=== PATIENT | female | born 1995 | race Caucasian/White ===

== ENCOUNTER → 2016-10-04 | Outpatient (CLI) | payer OTHER ==
--- NOTE | 2016-10-05 03:43 | REP ---
Clinical: Anatomical evaluation. Comparison: None . Findings: Examination demonstrates a single live intrauterine in breech presentation. motion is identified by technologist. Placenta is noted anteriorly and grade zero without evidence for placenta previa or abruption. Amniotic fluid volume is normal. Cervix measures 4.5 cm in length and appears closed. No evidence for nuchal cord. Gestational age by current measurements 20 weeks 6 day with GLENDA based 02/15/2017 . FHR equals 133 beats per minute. BPD 4.7 cm 20 weeks 1 day HC 18.2 cm 20 weeks 4 days AC 17.4 cm 22 weeks 2 days FL 3.6 cm 21 weeks 2 days HL 3.5 cm 21 weeks 6 days HC/AC ratio 1.05 Estimated weight 440 grams ( 76th percentile). Anatomical assessment demonstrates normal structures including cranium, choroid plexus, cavum, cerebellum/posterior fossa, lungs, four-chamber heart/ventricular outflow tracts, diaphragm, stomach, cord insertion/three-vessel cord, kidneys/bladder, spine, and extremities. Impression: Single live intrauterine in breech presentation. Limited evaluation of the facial features. Anatomical assessment is otherwise complete and within normal limits. Signed by Delmer Orta MD 10/05/2016 03:34 A
== END ==
LOC: M SMT 13:34
PROVIDERS: ATTEND Obstetrics & Gynecology
DX: Z34.82 Encounter for supervision of other normal pregnancy, second trimester (principal); O32.1XX1 Maternal care for breech presentation, fetus 1

== ENCOUNTER → 2016-11-19 | Outpatient (CLI) | payer OTHER ==
[2016-11-19 13:23] LABS: MEAN CORPUSCULAR HGB CONC 34.4 g/dl (32.0-36.5); MEAN CORPUSCULAR VOLUME 93.2 fl (80.0-96.0); RED CELL DISTRIBUTION WIDTH 13.2 % (11.5-14.5); WHITE BLOOD COUNT 12.3 K/mm3 (4.0-10.0)
== END ==
LOC: M SMT 09:34
PROVIDERS: ATTEND Obstetrics & Gynecology
DX: Z34.82 Encounter for supervision of other normal pregnancy, second trimester (principal)

== ENCOUNTER → 2017-01-26 | Outpatient (REF) | payer OTHER ==
[~2017-01-26] MED LIST: PRENTAB9 PO
== END ==
LOC: M LAB REF 17:01
PROVIDERS: ATTEND Obstetrics & Gynecology
DX: Z34.83 Encounter for supervision of other normal pregnancy, third trimester (principal)

== ENCOUNTER 2017-01-29 16:15 | Outpatient (CLI) | payer OTHER ==
[~2017-01-29] VITALS: Ht 170.2 cm; Wt 104.0 kg
[2017-01-29] MEDS ORDERED: PRENTAB9 PO (16:32)
[2017-01-29 16:33] VITALS: BP 127/66
[2017-01-29 17:08] VITALS: BP 116/59
== END 2017-01-29 17:32 | disposition home or self-care (01) ==
LOC: M LDO 16:15
PROVIDERS: ATTEND Obstetrics & Gynecology
DX: O26.893 Other specified pregnancy related conditions, third trimester (principal); Z3A.37 37 weeks gestation of pregnancy; R03.0 Elevated blood-pressure reading, without diagnosis of hypertension; R21 Rash and other nonspecific skin eruption; Z88.0 Allergy status to penicillin

== ENCOUNTER → 2017-02-08 | Outpatient (CLI) | payer OTHER ==
[~2017-02-08] MED LIST changes: +IBUP800T23 PO
[2017-02-08 13:33] LABS: MEAN CORPUSCULAR HEMOGLOBIN 30.6 pg (27.0-33.0); MEAN CORPUSCULAR HGB CONC 33.8 g/dl (32.0-36.5); MEAN CORPUSCULAR VOLUME 90.5 fl (80.0-96.0); RED CELL DISTRIBUTION WIDTH 13.8 % (11.5-14.5); WHITE BLOOD COUNT 11.2 K/mm3 (4.0-10.0)
[2017-02-08 13:48] LABS: ALT/SGPT 14 U/L (12-78); AST/SGOT 16 U/L (15-37); BILIRUBIN,TOTAL 0.3 MG/DL (0.2-1.0); GLOMERULAR FILTRATION RATE > 60.0 (>60); URIC ACID 4.7 MG/DL (2.6-6.0)
== END ==
LOC: M SMT 11:43
PROVIDERS: ATTEND Obstetrics & Gynecology
DX: O16.3 Unspecified maternal hypertension, third trimester (principal)

== ENCOUNTER 2017-02-11 07:07 | Inpatient (IN) | payer OTHER ==
[~2017-02-11] VITALS: Ht 170.2 cm; Wt 105.0 kg
[2017-02-11] VITALS (7 sets, daily range): BP systolic 125–159; BP diastolic 64–81
[~2017-02-11 07:07] MED LIST changes: -IBUP800T23 PO
[2017-02-11] MEDS ORDERED: LR 1,000 ML IV SCH (07:45)
[2017-02-11] MEDS ORDERED: LR 1,000 ML IV ONE (07:45)
[2017-02-11] MEDS ORDERED: BICITRA 30ML SOLN UDC PO ONE (07:45)
[2017-02-11] MEDS ORDERED: NALBUPHINE HCL 10 MG/ML AMP (J2300) IV PRN (08:00)
[2017-02-11] MEDS ORDERED: NALOXONE INJ 0.4 MG/1 ML VIAL (J2310) IV PRN ×2 (08:00)
[2017-02-11] MEDS ORDERED: METOCLOPRAMIDE INJ 10MG/2ML VIAL (J2765) IV PRN (08:00)
[2017-02-11] MEDS ORDERED: ONDANSETRON 4MG/2ML VIAL (J2405) IV PRN ×2 (08:00→12:00)
[2017-02-11 08:06] LABS: MEAN CORPUSCULAR HEMOGLOBIN 30.7 pg (27.0-33.0); MEAN CORPUSCULAR HGB CONC 34.1 g/dl (32.0-36.5); RED CELL DISTRIBUTION WIDTH 13.8 % (11.5-14.5); WHITE BLOOD COUNT 10.2 K/mm3 (4.0-10.0)
[2017-02-11] MEDS: PRENATAL VITAMIN TAB PO SCH (09:00)
[2017-02-11 09:57] LABS: HBSAG L&D NEGATIVE (NEGATIVE)
[2017-02-11] MEDS ORDERED: ONDANSETRON 4MG/2ML VIAL (J2405) As Ordered ONE (11:09)
[2017-02-11] MEDS ORDERED: ePHEDrine SULFATE 25 MG/5 ML(5MG/ML) SYRINGE As Ordered ONE (11:09)
[2017-02-11] MEDS ORDERED: OXYTOCIN INJ 10 UNITS/ML VIAL (J2590) As Ordered ONE (11:09)
[2017-02-11] MEDS ORDERED: PHENYLephrine HCL 500 MCG/5 ML (100MCG/ML) SYRINGE (J2370) As Ordered ONE (11:09)
[2017-02-11] MEDS ORDERED: KETOROLAC 60 MG/2 ML VIAL (J1885) As Ordered ONE (11:09)
[2017-02-11] MEDS ORDERED: MORPHINE PRES-FREE INJ 10 MG/10 ML VIAL (J2274) As Ordered ONE (11:09)
[2017-02-11] MEDS: LR 1,000 ML IV SCH ×2 (11:54→19:54)
[2017-02-11] MEDS ORDERED: MEASLES,MUMPS,RUBELLA VACCINE INJ (MMR-II) (90707) SC SCH (12:00)
[2017-02-11] MEDS ORDERED: RHOGAM 300 MCG (1500 IU) INJ (J2790) IM SCH (12:00)
[2017-02-11] MEDS ORDERED: OXYTOCIN DRIP 30 UNITS in APPROPRIATE DILUENT 1 EA IV ONE (12:00)
[2017-02-11] MEDS ORDERED: DOCUSATE SODIUM 100 MG CAP PO PRN (12:00)
[2017-02-11] MEDS ORDERED: PERCOCET 5MG/325MG TAB PO PRN ×2 (12:00)
[2017-02-11] MEDS: KETOROLAC 30 MG/ML VIAL (J1885) IV SCH ×2 (17:04→23:17)
[2017-02-12] VITALS (7 sets, daily range): BP systolic 120–180; BP diastolic 61–80
[2017-02-12] MEDS: LR 1,000 ML IV SCH (03:54)
[2017-02-12] MEDS: KETOROLAC 30 MG/ML VIAL (J1885) IV SCH (05:41)
[2017-02-12 06:31] LABS: MEAN CORPUSCULAR HEMOGLOBIN 30.9 pg (27.0-33.0); MEAN CORPUSCULAR HGB CONC 34.5 g/dl (32.0-36.5); MEAN CORPUSCULAR VOLUME 89.5 fl (80.0-96.0)
[2017-02-12] MEDS: PRENATAL VITAMIN TAB PO SCH (08:14)
[2017-02-12] MEDS: IBUPROFEN 800 MG TAB PO SCH ×2 (13:00→20:31)
[2017-02-13] MEDS: IBUPROFEN 800 MG TAB PO SCH (05:42)
[2017-02-13 06:08] VITALS: BP 135/77
[2017-02-13] MEDS: PRENATAL VITAMIN TAB PO SCH (08:23)
[2017-02-13] MEDS ORDERED: IBUP800T23 PO (10:59)
--- NOTE | 2017-02-13 19:46 | DSES ---
DATE OF ADMISSION: 02/11/2017 DATE OF DISCHARGE: 02/13/2017 HISTORY: A 21-year-old one at 39 and 0/7 weeks gestation presents for section due to breech presentation. The patient denies contractions. HOSPITAL COURSE: The patient was admitted on 02/11/2017. She underwent a primary low-tranverse section with a 7 pound 13 ounce female . There were no complications. Her postoperative course was unremarkable. She had adequate return of bladder and bowel function. She was deemed stable for discharge on postoperative day two. ADMISSION DIAGNOSIS: 39 weeks, breech presentation. DISCHARGE DIAGNOSIS: Delivered. PROCEDURE: Primary low-transverse section. DISPOSITION: The patient will followup with Dr. Kimbrough in two weeks for an incision check. Instructions are reviewed.
== END 2017-02-13 12:10 | disposition home or self-care (01) | DRG 540 ==
LOC: M LDI 07:07 → M OBS 13:52
PROVIDERS: ADMIT Obstetrics & Gynecology; ATTEND Obstetrics & Gynecology
PROC: 10D00Z1 Extraction of Products of Conception, Low, Open Approach (ICD-10-PCS; principal; 2017-02-11 09:30)
DX: O32.1XX0 Maternal care for breech presentation, not applicable or unspecified (principal); Z37.0 Single live birth; Z3A.39 39 weeks gestation of pregnancy

== ENCOUNTER → 2018-04-03 | Outpatient (REF) | payer OTHER | LOC: M LAB REF 17:56 | DX: Z12.4 Encounter for screening for malignant neoplasm of cervix (principal) | CPT/HCPCS: 88142 ==

== ENCOUNTER → 2020-11-24 | Outpatient (REF) | payer OTHER ==
[~2020-11-24] MED LIST changes: +IBUP1TAB7 PO
[2020-11-24 18:54] LABS: HEMATOCRIT 41.3 % (36.0-47.0); HEMOGLOBIN 13.7 g/dl (12.0-15.5); MEAN CORPUSCULAR HGB CONC 33.2 g/dl (32.0-36.5); MEAN CORPUSCULAR VOLUME 90.4 fl (80.0-96.0); PLATELET COUNT, AUTOMATED 267 10^3/uL (150-450); RED BLOOD COUNT 4.57 10^6/uL (4.00-5.40); WHITE BLOOD COUNT 13.2 10^3/uL (4.0-10.0)
[2020-11-24 19:57] LABS: HEPATITIS C VIRUS ABY INDEX < 0.0 INDEX (<0.8); HIV 1&2 SCREEN CENTAUR NEGATIVE (NEGATIVE)
[2020-11-24 20:14] LABS: CHLAMYDIA DNA AMPLIFICATION NEGATIVE (NEGATIVE); GC DNA AMPLIFICATION NEGATIVE (NEGATIVE)
== END ==
LOC: M PLALAB 14:36
PROVIDERS: ATTEND Specialist
DX: Z36.89 Encounter for other specified antenatal screening (principal); Z34.81 Encounter for supervision of other normal pregnancy, first trimester

== ENCOUNTER → 2021-01-19 | Outpatient (REF) | payer OTHER | LOC: M SFHCWAGY 16:58 | PROVIDERS: ATTEND Advanced Practice Midwife | DX: Z34.92 Encounter for supervision of normal pregnancy, unspecified, second trimester (principal); Z36.89 Encounter for other specified antenatal screening ==

== ENCOUNTER → 2021-01-29 | Outpatient (CLI) | payer OTHER ==
--- NOTE | 2021-01-29 15:22 | REP ---
INDICATION: ANATOMY COMPARISON: None. TECHNIQUE: Transabdominal obstetrical ultrasound with color Doppler evaluation. FINDINGS: Examination demonstrates a single live intrauterine in transverse (head to maternal left) presentation. motion is identified by technologist. Placenta is noted posteriorly, grade 1 and low lying approximately 7 mm from the closed internal os. Amniotic fluid volume is normal. Cervix measures 3.9 cm in length and appears closed.. Gestational age by LMP 18 weeks 2 days with GLENDA 06/30/2021. Gestational age by current measurements 18 weeks 5 days with GLENDA 06/27/2021. FHR equals 130 beats per minute. Estimated weight 238 grams (52ndpercentile). Anatomical assessment demonstrates normal structures including cranium, choroid plexus, cavum, cerebellum/posterior fossa, facial features, lungs, diaphragm, stomach, cord insertion/three-vessel cord, bladder, spine, and extremities. Incomplete evaluation of the heart/ventricular outflow tracts due to positioning. Mild symmetric bilateral renal pelviectasis upper limits of normal range. IMPRESSION: 1. Single live intrauterine in transverse lie demonstrating appropriate estimated weight. 2. Posterior low-lying placenta 7 mm from the closed internal os. 3. Anatomical limitations as noted above may warrant re-evaluation and follow-up. <Electronically signed by Delmer Orta > 01/29/21 [id number]
== END ==
LOC: M WHC 12:56
PROVIDERS: ATTEND Advanced Practice Midwife
DX: O44.42 Low lying placenta NOS or without hemorrhage, second trimester (principal); Z36.89 Encounter for other specified antenatal screening; Z3A.18 18 weeks gestation of pregnancy; O32.2XX0 Maternal care for transverse and oblique lie, not applicable or unspecified

== ENCOUNTER → 2021-03-03 | Outpatient (CLI) | payer OTHER ==
--- NOTE | 2021-03-03 09:44 | REP ---
INDICATION: F/U ANATOMY,EVALUATE PLACENTAL LOCATION COMPARISON: 01/29/2021 TECHNIQUE: Transabdominal obstetrical ultrasound with color Doppler evaluation. FINDINGS: Examination demonstrates a single live intrauterine in cephalic presentation. motion is identified by technologist. Placenta is noted posterior, low lying (approximately 18 mm from the closed internal os) and grade 1 without evidence for placenta previa or abruption. Amniotic fluid volume is normal. Cervix measures 3.5 cm in length and appears closed. No evidence for nuchal cord. Selected gestational age: 23 weeks 0 days with GLENDA 06/30/2021. Gestational age by current measurements 24 weeks 0 days with GLENDA 06/23/2021. FHR equals 140 beats per minute. Estimated weight 647 grams (86thpercentile). Anatomical assessment demonstrates normal structures including cranium, choroid plexus, cavum, cerebellum/posterior fossa, facial features, lungs, cardiac ventricular outflow tracts, diaphragm, stomach, cord insertion/three-vessel cord, bladder, spine, and extremities. Four-chamber heart views are relatively normal although small echogenic focus in the left cardiac ventricle is noted and likely represents prominent chordae tendineae. Bilateral renal pelviectasis noted without hydronephrosis. IMPRESSION: 1. Single live intrauterine demonstrating appropriate interval growth and estimated weight. 2. Anatomical findings as described above may warrant continued follow-up and evaluation. 3. Low lying placenta approximately 18 mm from the closed internal os. <Electronically signed by Delmer Orta > 03/03/21 [id number]
== END ==
LOC: M WHC 07:59
PROVIDERS: ATTEND Advanced Practice Midwife
DX: O44.42 Low lying placenta NOS or without hemorrhage, second trimester (principal); Z3A.23 23 weeks gestation of pregnancy; O28.3 Abnormal ultrasonic finding on antenatal screening of mother

== ENCOUNTER → 2021-04-01 | Outpatient (CLI) | payer OTHER ==
[2021-04-01 13:51] LABS: HEMATOCRIT 37.3 % (36.0-47.0); HEMOGLOBIN 12.3 g/dl (12.0-15.5); MEAN CORPUSCULAR HEMOGLOBIN 30.2 pg (27.0-33.0); MEAN CORPUSCULAR VOLUME 91.6 fl (80.0-96.0); PLATELET COUNT, AUTOMATED 226 10^3/uL (150-450); RED BLOOD COUNT 4.07 10^6/uL (4.00-5.40); WHITE BLOOD COUNT 8.5 10^3/uL (4.0-10.0)
== END ==
LOC: M PLALAB 10:25
PROVIDERS: ATTEND Advanced Practice Midwife
DX: Z34.92 Encounter for supervision of normal pregnancy, unspecified, second trimester (principal); Z36.89 Encounter for other specified antenatal screening

== ENCOUNTER → 2021-04-07 | Outpatient (CLI) | payer OTHER | LOC: M LAB 07:09 | PROVIDERS: ATTEND Advanced Practice Midwife | DX: O99.810 Abnormal glucose complicating pregnancy (principal) ==

== ENCOUNTER → 2021-04-23 | Outpatient (CLI) | payer OTHER ==
--- NOTE | 2021-04-23 12:35 | REP ---
INDICATION: F/U GROWTH/LOW LYING PLACENTA/MATERNAL CARE LOW TRANSVERSE COMPARISON: 03/03/2021 TECHNIQUE: Transabdominal obstetrical ultrasound with color Doppler evaluation. FINDINGS: Examination demonstrates a single live intrauterine in cephalic presentation. motion is identified by technologist. Placenta is noted posterior and grade 1 without evidence for placenta previa or abruption. Amniotic fluid volume is normal. Cervix measures 3.2 cm in length and appears closed.. Selected gestational age: 30 weeks 2 days with GLENDA 06/30/2021. Gestational age by current measurements 33 weeks 3 days with GLENDA 06/08/2021. FHR equals 140 beats per minute. BPD: 8.4 cm at 33 weeks 4 days HC: 30.4 cm at 33 weeks 6 days AC: 29.7 cm at 33 weeks 5 days FL: 6.3 cm at 32 weeks 5 days HL: 5.8 cm at 33 weeks 3 days HC/AC: 1.02 Estimated weight 2186 grams (greater than 97thpercentile). MEGGAN: 16.4 cm Limited anatomical assessment suggests mild bilateral renal pelviectasis which may warrant evaluation. IMPRESSION: 1. Intrauterine with greater than expected interval growth. 2. Placenta is now posteriorly located and grade 1 without previa or low lying appearance. 3. Mild bilateral renal pelviectasis again noted which may warrant follow-up evaluation. <Electronically signed by Delmer Orta > 04/23/21 [id number]
== END ==
LOC: M WHC 11:25
PROVIDERS: ATTEND Obstetrics & Gynecology
DX: O34.211 Maternal care for low transverse scar from previous cesarean delivery (principal); Z3A.30 30 weeks gestation of pregnancy; O28.3 Abnormal ultrasonic finding on antenatal screening of mother

== ENCOUNTER → 2021-06-02 | Outpatient (REF) | payer OTHER | LOC: M SFHCWAGY 09:57 | PROVIDERS: ATTEND Obstetrics & Gynecology | DX: O34.211 Maternal care for low transverse scar from previous cesarean delivery (principal) ==

== ENCOUNTER → 2021-06-18 | Outpatient (CLI) | payer OTHER | LOC: M LABSMTC 09:25 | PROVIDERS: ATTEND Anesthesiology | DX: Z01.812 Encounter for preprocedural laboratory examination (principal); Z20.822 Contact with and (suspected) exposure to COVID-19 ==

== ENCOUNTER 2021-06-23 05:18 | Inpatient (IN) | payer OTHER ==
[~2021-06-23] VITALS: Ht 170.2 cm; Wt 118.0 kg
[2021-06-23] VITALS (9 sets, daily range): BP systolic 114–127; BP diastolic 57–69
[2021-06-23] MEDS ORDERED: PRENTAB9 PO (05:34)
[2021-06-23] MEDS ORDERED: HOME MED LIST COMPLETE! XX SCH (05:35)
[2021-06-23] MEDS ORDERED: ceFAZolin SOD 2 GM in IV 1 EA IV ONE (06:00)
[2021-06-23] MEDS ORDERED: LR 1,000 ML IV ONE (06:00)
[2021-06-23] MEDS ORDERED: BICITRA 30ML SOLN UDC PO ONE (06:00)
[2021-06-23 06:16] LABS: HEMATOCRIT 36.5 % (36.0-47.0); HEMOGLOBIN 11.9 g/dl (12.0-15.5); MEAN CORPUSCULAR HEMOGLOBIN 28.1 pg (27.0-33.0); MEAN CORPUSCULAR HGB CONC 32.6 g/dl (32.0-36.5); MEAN CORPUSCULAR VOLUME 86.1 fl (80.0-96.0); PLATELET COUNT, AUTOMATED 220 10^3/uL (150-450); RED BLOOD COUNT 4.24 10^6/uL (4.00-5.40); WHITE BLOOD COUNT 10.5 10^3/uL (4.0-10.0)
[2021-06-23] MEDS ORDERED: LR 1,000 ML IV SCH ×2 (07:00→09:55)
[2021-06-23] MEDS ORDERED: MORPHINE PRES-FREE INJ 10 MG/10 ML VIAL (J2274) As Ordered ONE (07:18)
[2021-06-23] MEDS ORDERED: OXYTOCIN 30 UNITS IN 0.9% NaCl 500ML IV BAG (J2590) As Ordered ONE ×2 (07:19→09:17)
[2021-06-23] MEDS ORDERED: LIDOCAINE PRES-FREE 2% 10ML AMP As Ordered ONE (07:54)
[2021-06-23] MEDS ORDERED: ONDANSETRON 4MG/2ML VIAL IV PRN ×3 (07:57→09:55)
[2021-06-23] MEDS ORDERED: NALBUPHINE HCL 10 MG/ML AMP (J2300) IV PRN (07:57)
[2021-06-23] MEDS ORDERED: METOCLOPRAMIDE INJ 10MG/2ML VIAL (J2765 PER 1) IV PRN ×2 (07:57→09:55)
[2021-06-23] MEDS ORDERED: diphenhydrAMINE 50MG/ML VIAL (J1200) IV PRN (07:57)
[2021-06-23] MEDS ORDERED: NALOXONE INJ 0.4MG/1ML VIAL (J2310 PER 1MG) IV PRN ×2 (07:57)
[2021-06-23] MEDS ORDERED: ONDANSETRON 4MG/2ML VIAL As Ordered ONE (08:02)
[2021-06-23] MEDS ORDERED: KETOROLAC 60MG 2ML VIAL As Ordered ONE (08:21)
[2021-06-23] MEDS ORDERED: dexameTHASONE 4 MG/ML 1ML VIAL (J1100 PER 1MG) As Ordered ONE (08:21)
[2021-06-23] MEDS ORDERED: ePHEDrine SULFATE 25 MG/5 ML(5MG/ML) SYRINGE As Ordered ONE (08:38)
[2021-06-23] MEDS: PRENATAL VITAMINS CHEWABLE TABLET PO SCH (09:00)
--- NOTE | 2021-06-23 09:17 | ROOPDOC ---
[facility] Report Of Operation Report of Operation DATE OF PROCEDURE: 06/23/2021 PREPROCEDURE DIAGNOSES: 39+ weeks gestation, history of low transverse section x1 declining trial of labor, satisfied parity POSTPROCEDURE DIAGNOSES: Same PROCEDURE: Repeat low transverse section with Herscher bilateral tubal ligation. SURGEON: Sagar Kimbrough DO FACOG TEXTURE ARTIST: Kwaku Triana MD FACOG (Essential role in retraction, extraction, and closure of all tissue layers) ANESTHESIA: Spinal ESTIMATED BLOOD LOSS: 600 mL. IV FLUIDS: 1500 mL LR URINE OUTPUT: 25 mL COMPLICATIONS: None. FINDINGS: Normal uterus and bilateral fallopian tubes/ovaries. PREOPERATIVE ANTIBIOTICS: Ancef 2g IV x 1 DATA: Apgars 9 and 9. Birthweight 9lbs 5oz, 4220g . SPECIMENS: right and left fallopian tubal segments. PRIMARY INDICATION FOR : Elective repeat, satisfied parity DESCRIPTION OF PROCEDURE: The patient was counseled on the risks, benefits, indications and alternatives of the procedure. Informed consent was obtained. She was taken to the operating room with IV running and placed on the operating table in the dorsal supine position with a leftward tilt. Regional anesthesia was found to be adequate. Sequential compression devices were placed on the lower extremities. A Johns catheter was placed under sterile conditions. She was prepared and draped in normal sterile fashion. A time out was performed per protocol. Regional anesthesia was again found to be adequate. A Pfannenstiel skin incision was made with the 10 blade. The 10 blade was used to dissect down to the level of the rectus sheath fascia. The rectus sheath pressure was incised midline and this was extended bilaterally with Davis scissors , and manual stretch. The rectus muscle bellies were dissected off the rectus sheath fascia superiorly and inferiorly using both sharp and blunt dissection. The midline was identified. The peritoneum was identified and the cavity entered. The peritoneal opening was extended with manual stretch. The Mobius retractor was placed. The vesicouterine peritoneum was dissected with Metzenbaum scissors to create the bladder flap. A low transverse uterine incision was made with the 10 blade. This was extended with manual stretch. The amniotic sac was punctured, and clear fluid was noted. The baby delivered through the hysterotomy without difficulty. The cord was doubly clamped and cut, and the baby was handed off to awaiting care. data shown above. The placenta was removed manually. The intrauterine cavity was cleared of all clot and debris. The hysterotomy was closed with 0 Vicryl in running locked fashion. This was reinforced with a second imbricating layer using 0 Vicryl in running fashion. Excellent hemostasis of the hysterotomy was noted. The right and left fallopian tubes were followed out to the fimbriated end. A ligation was performed on each fallopian tube using the following technique (Janeth): The ampullary portion of each was grasped with a Georgi and elevated. A peritoneal window was created with Bovie along the mesosalpinx. Plain gut suture was used to tie two locations of the fallopian tube at the ends of the created window. The approximate 2-3cm intervening segment of fallopian tube was excised with Metzenbaum scissors. Bovie cautery was used to obliterate the lumen of the fallopian tube on each cut end, and to ensure hemostasis. Excellent hemostasis was noted. The pelvis was irrigated and the fluid suctioned. The Mobius retractor was rem layne. The peritoneum was closed with 3-0 Vicryl running fashion. The rectus muscle bellies were reapproximated with interrupted stitches using 3-0 Vicryl. The rectus muscles bellies were hemostatic. The rectus sheath fascia was closed with 0 Vicryl running fashion. The subcutaneous layer was irrigated and the fluid suctioned. Small bleeding vessels were cauterized with Bovie. Excellent hemostasis was noted. The subcutaneous layer was reapproximated with 3-0 Vicryl running fashion. Skin was closed with 3-0 Monocryl in subcuticular fashion. An Optifoam bandage was placed over the closed incision. Sponge, needle and instrument counts were correct per protocol throughout the procedure. The patient tolerated the entire procedure very well. She was transferred to the PACU in stable condition. DO TAMEKA Calabrese JONATHAN R. DO Jun 23, 2021 09:17
[2021-06-23] MEDS ORDERED: ACETAMINOPHEN 500 MG TAB PO PRN (09:20)
[2021-06-23] MEDS ORDERED: OXYTOCIN DRIP 30 UNITS in IV 1 EA IV SCH (09:20)
[2021-06-23] MEDS ORDERED: MEASLES,MUMPS,RUBELLA VACCINE INJ (MMR-II) (90707) SC SCH (09:20)
[2021-06-23] MEDS ORDERED: PERCOCET 5MG/325MG TAB PO PRN ×3 (09:20→09:55)
[2021-06-23] MEDS ORDERED: SIMETHICONE 80MG CHEW TAB PO PRN (09:20)
[2021-06-23] MEDS ORDERED: RHOGAM 300 MCG (1500 IU) INJ (J2790) IM SCH (09:20)
[2021-06-23] MEDS ORDERED: COLA100C5 PO (09:24)
[2021-06-23] MEDS ORDERED: PERCOCET PO (09:24)
[2021-06-23] MEDS ORDERED: IBUP80TA PO (09:24)
[2021-06-23] MEDS: LR 1,000 ML IV SCH ×2 (09:50→17:20)
[2021-06-23] MEDS ORDERED: fentaNYL 100 MCG/2 ML INJECTION (J3010) IV PRN (09:55)
[2021-06-23] MEDS: KETOROLAC 30 MG/ML 1ML VIAL IV SCH ×2 (15:36→21:00)
[2021-06-24 02:14] VITALS: BP 137/79
[2021-06-24 06:39] VITALS: BP 114/66
[2021-06-24 08:38] LABS: HEMATOCRIT 30.5 % (36.0-47.0); MEAN CORPUSCULAR HEMOGLOBIN 28.2 pg (27.0-33.0); MEAN CORPUSCULAR HGB CONC 32.1 g/dl (32.0-36.5); MEAN CORPUSCULAR VOLUME 87.6 fl (80.0-96.0); PLATELET COUNT, AUTOMATED 189 10^3/uL (150-450); RED BLOOD COUNT 3.48 10^6/uL (4.00-5.40); WHITE BLOOD COUNT 9.7 10^3/uL (4.0-10.0)
[2021-06-24 08:45] LABS: HEMOGLOBIN 9.8 g/dl (12.0-15.5)
[2021-06-24] MEDS ORDERED: PRENATAL VITAMINS CHEWABLE TABLET PO SCH (09:00)
[2021-06-24] MEDS ORDERED: KETOROLAC 30 MG/ML 1ML VIAL IV ONE (09:00)
[2021-06-24] MEDS: PRENATAL VITAMINS CHEWABLE TABLET PO SCH (09:00)
[2021-06-24 10:04] VITALS: BP 131/68
[2021-06-24] MEDS ORDERED: IBUPROFEN 800 MG TAB PO SCH (11:00)
[2021-06-24 14:00] VITALS: BP 123/66
[2021-06-24] MEDS: IBUPROFEN 800 MG TAB PO SCH (18:05)
[2021-06-24 18:11] VITALS: BP 123/69
[2021-06-24 22:00] VITALS: BP 137/83
[2021-06-25] MEDS: IBUPROFEN 800 MG TAB PO SCH ×2 (00:48→08:18)
[2021-06-25 02:00] VITALS: BP 139/77
[2021-06-25 06:00] VITALS: BP 140/77
[2021-06-25] MEDS: PRENATAL VITAMINS CHEWABLE TABLET PO SCH (08:19)
[2021-06-25 10:00] VITALS: BP 130/75
--- NOTE | 2021-06-25 11:32 | OBDS ---
[facility] Obstetrical Discharge Sum. Obstetrical Discharge Summary Date: Jun 25, 2021 : 2 Term: 2 Pre-term: 0 Abortions: 0 Livin Rh: Positive Rubella: Immune Labor Scheduled repeat Delivery Repeat section A/P, Post Course List any complications Admission diagnosis: Scheduled . Discharge diagnosis: Condition at Discharge: Stable Discharge Instructions: Home Activity: As tolerated, no driving while on narcotic pain medication Diet: Regular Medications: See medical record Follow-up: 2-week incision check RAFAEL ESCOBEDO MD Jun 25, 2021 11:32
== END 2021-06-25 12:40 | disposition home or self-care (01) | DRG 540 ==
LOC: M LDI 05:18 → M OBS 10:35
PROVIDERS: ADMIT Obstetrics & Gynecology; ATTEND Obstetrics & Gynecology
PROC: 0UB70ZZ Excision of Bilateral Fallopian Tubes, Open Approach (ICD-10-PCS; 2021-06-23)
PROC: 10D00Z1 Extraction of Products of Conception, Low, Open Approach (ICD-10-PCS; principal; 2021-06-23 07:30)
DX: O34.211 Maternal care for low transverse scar from previous cesarean delivery (principal); Z37.0 Single live birth; Z3A.39 39 weeks gestation of pregnancy; Z30.2 Encounter for sterilization

== ENCOUNTER → 2023-07-29 | Outpatient (REF) | payer OTHER ==
[~2023-07-29] MED LIST changes: +COLA100C5 PO; +IBUP80TA PO; +PERCOCET PO
[2023-07-29 21:47] LABS: APPEARANCE, URINE HAZY (CLEAR); BACTERIA, URINE AUTO 1+ (NEGATIVE); BILIRUBIN, URINE AUTO NEGATIVE (NEGATIVE); BLOOD, URINE BLOOD 1+ (NEGATIVE); COLOR, URINE YELLOW (YELLOW); GLUCOSE, URINE (UA) AUTO NEGATIVE (NEGATIVE); KETONE, URINE AUTO NEGATIVE (NEGATIVE); LEUKOCYTE ESTERASE, URINE AUTO 3+ (NEGATIVE); MUCUS, URINE SMALL (NEGATIVE); NITRITE, URINE AUTO NEGATIVE (NEGATIVE); PROTEIN, URINE AUTO NEGATIVE (NEGATIVE); RBC, URINE AUTO 3 /HPF (0-3); SPECIFIC GRAVITY URINE AUTO 1.009 (1.002-1.035); SQUAMOUS EPITHELIAL CELL UR AU 5 /HPF (0-6); UROBILINOGEN, URINE AUTO 0.2 mg/dL (0.0-2.0); WBC, URINE AUTO 5 /HPF (0-3)
== END ==
LOC: M LAB REF 21:11
PROVIDERS: ATTEND Physician Assistant
DX: N39.0 Urinary tract infection, site not specified (principal)